=== PATIENT | male | born 1980 | race Caucasian/White ===

== ENCOUNTER 2017-11-01 07:10 | Day surgery (SDC) | payer OTHER ==
[~2017-11-01] VITALS: Ht 188 cm; Wt 97.5 kg
[~2017-11-01 07:10] MED LIST: COLACE100 MG PO; PERCOCET 5-3251 TAB PO
[2017-11-01] MEDS ORDERED: NAPROSYN500 MG PO (08:15)
[2017-11-01] MEDS ORDERED: PEPCID20 MG PO (08:16)
[2017-11-01] MEDS ORDERED: OMEPRAZOLE20 M1 PO (08:16)
[2017-11-01 08:27] VITALS: BP 112/78; Ht 188 cm; Wt 97.5 kg
[2017-11-01] MEDS ORDERED: PERCOCET 5-3251 TAB PO (09:04)
[2017-11-01] MEDS ORDERED: BACTRIM DS TABL1 TAB PO (09:04)
[2017-11-01] MEDS ORDERED: ECOTRIN325 MG PO (09:05)
--- NOTE | 2017-11-01 14:10 | NUR ---
1300 IV DC WITH CATHER TIP INTACT
--- NOTE | 2017-11-01 14:59 | OP ---
PATIENT NAME: BERNADINE ALTMAN MEDICAL RECORD: [id number] :80 LOCATION:[facility] ADMISSION DATE: SURGEON: SINDY HANNAH DO DATE OF OPERATION: 11/01/2017 PROCEDURE PERFORMED: Left ankle open reduction and internal fixation. PREOPERATIVE DIAGNOSIS: Left distal fibular shaft fracture with syndesmotic disruption. POSTOPERATIVE DIAGNOSIS: Left distal fibular shaft fracture with syndesmotic disruption. INDICATIONS: Mr. Altamn is a 37-year-old inmate that injured his ankle playing soccer about a week or two ago. He was seen in my office and seen to have the high fibular fracture as well as widening of the medial malleolus indicating syndesmotic disruption. Once this was recognized, he was scheduled for surgery. Risks and benefits were discussed with him. DESCRIPTION OF PROCEDURE: The patient received a block in the preoperative area by anesthesia, was taken to the operative suite, laid in supine position, given 2 grams of Ancef preoperatively. Once this was done, the left lower extremity was prepped and draped in sterile fashion. Timeout was performed, everyone was in agreement with the correct side, site, and patient. A tourniquet had previously been placed above the knee. Once the timeout was performed and the patient had been prepped and draped, the left lower extremity was exsanguinated with an Esmarch and the tourniquet was elevated to 350 mmHg for 49 minutes total during the case. After this was done, a small incision was made at the distal fibula and then a plate was slid up and where the plate would be most proximally, another incision was made and the plate was then slid subcutaneously over the fibula into position. K-wires were placed. Once we got good position on the plate seen on the AP and lateral views, I proceeded to lock the plate distally. First, 4 locking screws were placed distally and then a cortical screw was placed in the second to last hole proximally on the plate. It was a Biomet plate and a cortical screw was placed in the second to last hole and then a locking screw was placed in the last hole. After this was done, a large [id number]-xhtlx clamp was used to clamp the ankle together with the foot dorsiflexed to close down the syndesmosis and a ZipTight was used across the more distal part of the plate at the area of the syndesmosis. Once this was done and tied down, a second ZipTight was desired, but was not available, so Arthrex TightRope was used. Both these were titanium due to the titanium plate. This was put more proximal in the hole just distal to the cortical screw in the plate. This was placed and cinched down as well. The ankle was then stressed under fluoroscopy and seen to not open up medially. The plate was in good position. AP and lateral views were taken, seen to be in satisfactory position and the fracture was fixed. After this was done, the tourniquet had been let down at 49 minutes and the incisions were irrigated well and then closed with 3-0 Vicryl in an inverted interrupted fashion under the skin and then a 3-0 Monocryl was used in a horizontal mattress fashion over the 2 incision sites. Adaptic, 4 x 4s were placed over that and ABDs were placed on the heel and the lower extremity was wrapped with Webril and a well-padded splint was placed on the left lower extremity posteriorly. A short leg splint and then wrapped with an Jeffery wrap. The patient was awakened and taken to recovery in stable condition. OPERATIVE REPORT [id number] BERNADINE ALTMAN BLOOD LOSS: Minimal. TOURNIQUET TIME: 49 minutes. COMPLICATIONS: None. TRANSINT:[id number] Voice Confirmation ID: [id number] DOCUMENT ID: [id number] SINDY HANNAH DO at 1459 CC: [id number] DICTATION DATE: 11/01/17 1214 MRI TECHNOLOGIST: 11/01/17 1237 [facility] 11/01/[address] [id number]
== END 2017-11-01 14:10 | disposition home or self-care (01) ==
LOC: D.OPS 07:10 → D.SDCHOLD 07:13 → D.OPS 08:45
DX: S82.402A Unspecified fracture of shaft of left fibula, initial encounter for closed fracture (principal); X58.XXXA Exposure to other specified factors, initial encounter; Y93.66 Activity, soccer; J45.909 Unspecified asthma, uncomplicated; K21.9 Gastro-esophageal reflux disease without esophagitis; Z01.812 Encounter for preprocedural laboratory examination

== ENCOUNTER → 2018-01-31 10:25 | Outpatient (CLI) | payer OTHER ==
[2017-11-01 08:27] VITALS: BMI 27.6
[~2018-01-31 10:25] MED LIST changes: +BACTRIM DS TABL1 TAB PO; +ECOTRIN325 MG PO; +NAPROSYN500 MG PO; +OMEPRAZOLE20 M1 PO; +PEPCID20 MG PO
[2018-01-31 11:09] LABS: BASOPHILS 0.3 % (0-2); HEMOGLOBIN 12.9 g/dL (13.5-17.5); IMMATURE GRANULOCYTES 0.3 % (0-5); LYMPHOCYTES 20.9 % (15-50); MCH 26.1 pg (26.0-34.0); MCHC 32.3 g/dL (31.0-37.0); MEAN PLATELET VOLUME 9.1 fL (7.4-10.4); NEUTROPHILS 66.5 % (40-80); RBC 4.94 10x6/uL (4.20-6.10); WBC 10.2 10x3/uL (4.8-10.8)
[2018-01-31 11:10] LABS: PLATELET COUNT 317 10x3/uL (130-400)
[2018-01-31 12:40] LABS: ERYTHROCYTE SEDIMENTATION RATE 34 mm/hr (0-15)
== END | disposition home or self-care (01) ==
LOC: D.LABREF 10:25
PROVIDERS: Orthopaedic Surgery
DX: M25.572 Pain in left ankle and joints of left foot (principal)

== ENCOUNTER → 2018-03-07 09:31 | Outpatient (CLI) | payer OTHER ==
[2017-11-01 08:27] VITALS: BMI 27.6
== END | disposition home or self-care (01) ==
LOC: D.LABREF 09:31
DX: M25.572 Pain in left ankle and joints of left foot (principal)

== ENCOUNTER → 2021-05-24 21:42 | Outpatient (CLI) | payer OTHER ==
[2017-11-01 08:27] VITALS: BMI 27.6
[2021-05-24 22:21] LABS: PROTEIN - BODY FLUID 4.3 G/DL
[2021-05-24 22:57] LABS: MACROPHAGES BF 17 %; MESOTHELIALS BF 3 %; NEUT - BF 51 %
== END | disposition home or self-care (01) ==
LOC: D.LABREF 21:42
PROVIDERS: ATTEND Orthopaedic Surgery
DX: M25.561 Pain in right knee (principal)